=== PATIENT | female | born 1955 | race Caucasian/White ===

== ENCOUNTER 2020-06-29 15:57 | Outpatient (RCR) | payer OTHER, SELFPAY ==
--- NOTE | 2020-07-08 13:26 | PTOPEVAL ---
Thank you for referring Jamee Trammell to [facility].? The patient is scheduled to be seen for therapy? ____x/week for ___ weeks. Please review, sign, date and return this plan of care OSWALDO. I agree with and certify that the following plan of care is medically necessary. Referring Physician Date Admitting Provider: Attending Provider: PHYSICIAN NOT ON STAFF Referring Provider: *PT Outpatient Evaluation Start: 06/29/20 16:12 Freq: Status: Active Protocol: Document 06/29/20 16:15 VITO (Rec: 06/29/20 16:55 [facility] [id number]) Therapy Assessment Status Assessment Status Assessment Status Evaluation Evaluation Information Problem Diagnosis R heel pain/achilles tendonitis Onset 06/11/20 Additional Evaluation Detail LEFS= Subjective Information patient reports she is coming Query Text:As Reported By Patient/ to therapy for pain in her R Family foot. she reports she has had pain for years. she reports she was in a boot beginning in january for about 10-12 weeks. she reports she is up on her feet all day at the [facility]. she reports her pain standing and walking has been decreased since getting new shoes and inserts. she reports she has a night splint from her last isues with her L foot. however , she does not wear it. patient reports she has increased pain with walking. she reports she has pain in the foot along the bottom and medial side of the heel. Prior Level of Function Comments Additional Prior Level of Function patient has dealt with pain in Comments her feet for years. she reports she had a similar issue in the L foot about 3 years prior. she has had mri's and x-rays of the R foot. Pain Assessment Timing of Pain Assessment Timing of Pain Assessment Assessment Pain Scale Pain Scale Used Numeric (1 - 10) Self Report Pain Assessment Right Foot/Feet Reported Pain Level 0 Pain Frequency Chronic,Intermittent Lowest Pain Intensity 0 Greatest Pain Intensity 10 Pain Aggravating Factors Walking,Other Pain Aggravating Factors Other Pain A
== END 2020-07-27 17:29 | disposition home or self-care (01) ==
LOC: CHSPT 15:57
PROVIDERS: PCP Family Medicine
DX: M79.671 Pain in right foot (principal); M76.61 Achilles tendinitis, right leg
CPT/HCPCS: 97035; 97110; 97140; 97161; 97542